=== PATIENT | male | born 1990 | race Caucasian/White ===

== ENCOUNTER 2017-08-13 08:31 | Emergency (ER) | payer BC ==
--- NOTE | 2017-08-13 09:06 | Emergency Department Record ---
History of Present Illness - General Chief Complaint: Abdominal Pain Stated Complaint: ABD PAIN Time Seen by Provider: 08/13/17 08:43 Source: Patient Mode of Arrival: Ambulatory Limitations: No limitations - History of Present Illness Initial Comments: The patient is here due to a 5 day hx of sharp crampy lower abdominal pain. The pain is intermittent and started in the RLQ and now is mainly in the LLQ. He did have 3 loose stools yesterday but none today. The patient has had some nausea but no vomiting, or fever. He did see his PCP 6 days ago and was told he may have a kidney stone but his urine was normal that day. Today he was seen in the [facility] and sent to the ER for further evaluation. He has no hx of any medical problems and no hx of any abdominal surgeries. MD Complaint: Abdominal pain Onset/Timin -: Days(s) Location: LLQ, RLQ Radiation: None Migration to: No migration Severity: Mild Quality: Sharp Consistency: Intermittent Improves With: Nothing Worsens With: Nothing Associated Symptoms: Nausea - Related Data Previous Rx's Medication Instructions Recorded Dicyclomine HCl [Bentyl] 10 mg PO Q8H #15 cap 08/13/17 Allergies Allergy/AdvReac Type Severity Reaction Status Date / Time amoxicillin Allergy Unknown Unverified 08/13/17 08:07 Travel Screening - Travel/Exposure Within Last 30 Days Have you traveled within the last 30 days?: No Review of Systems Constitutional: Denies: Chills, Fever Eyes: Denies: Eye discharge ENT: Denies: Congestion Respiratory: Denies: Cough, Dyspnea Past Medical History - SOCIAL HISTORY Smoking Status: Never smoker Alcohol Use: None Drug Use: None - RESPIRATORY Hx Respiratory Disorders: No - CARDIOVASCULAR Hx Cardio Disorders: No - NEURO Hx Neuro Disorders: No - GI Hx GI Disorders: No - Hx Genitourinary Disorders: No - ENDOCRINE Hx Endocrine Disorders: No - MUSCULOSKELETAL Hx Musculoskeletal Disorders: No - PSYCH Hx Psych Problems: No - HEMATOLOGY/ONCOLOGY Hx Hematology/Oncology Disorders: No Family Medical History Any Significant Family History?: No Physical Exam - General General Appearance: Alert, Oriented x3, Cooperative, No acute distress - Head Head exam: Atraumatic, Normocephalic, Normal inspection - Eye Eye exam: Normal appearance, PERRL - Neck Neck exam: Normal inspection, Full ROM. negative: Tenderness - Respiratory Respiratory exam: Normal lung sounds bilaterally. negative: Respiratory distress - Cardiovascular Cardiovascular Exam: Regular rate, Normal rhythm, Normal heart sounds - GI/Abdominal GI/Abdominal exam: Soft, Normal bowel sounds, Tenderness (There is mild tenderness in the lower abdomen L > R. The abdomen is soft with no guarding or rebound.). negative: Guarding, Hernia, Organomegaly, Pulsatile mass, Rebound, Rigid - exam: Circumcision, Normal inspection. negative: Scrotal swelling, Testicular tenderness, Vertical testicular lie Course Vital Signs 08/13/17 08:31 Temperature 97.8 F Pulse Rate 54 L Respiratory 18 Rate Blood Pressure 119/69 Pulse Ox 97 - Reevaluation(s) Reevaluation #1: The patient is resting comfortably and denies any significant pain at this time. I did explain to him the test results are all WNL's and he is to use Advil or Motrin for pain with Bentyl if needed. If not better in 3-5 days he is to recheck with his PCP and possibly obtain a referral to a specialist. 08/13/17 09:59 Medical Decision Making - Data Complexity MDM Data: Labs Ordered and/or Reviewed, X-Ray Ordered and/or Reviewed - Lab Data Result diagrams: 08/13/17 08:50 08/13/17 08:50 - Radiology Data Radiology results: Report reviewed (abd/pelvis CT: No acute changes.) Disposition Disposition: Discharge Clinical Impression: Abdominal pain Qualifiers: Abdominal location: unspecified location Qualified Code(s): R10.9 - Unspecified abdominal pain Disposition: Home, Self-Care Condition: (1) Good Instructions: Abdominal Pain (ED) Additional Instructions: Please take Advil or Motrin for pain and use the Bentyl if needed. Please see your PCP in 3-5 days if not better. Return to the ER for any increased pain, fever, or vomiting. Prescriptions: Dicyclomine HCl [Bentyl] 10 mg PO Q8H #15 cap Forms: Patient Portal Access Time of Disposition: 10:01 Quality - Quality Measures Quality Measures: N/A - Blood Pressure Screening View Details: Yes Does Patient Have Any of the Following: No Blood Pressure Classification: Normal BP Reading Systolic Measurement: 118 Diastolic Measurement: 68 Screening for High Blood Pressure: < Normal BP, F/U Not Required > [G8783]
[2017-08-13 09:07] LABS: BASO % 0.5 % (0-6); EOS % 2.8 % (0-6); GRAN % 65.3 % (47-80); HEMATOCRIT 44.3 % (42.0-52.0); HEMOGLOBIN 14.8 gm/dl (14.0-18.0); LYMPH % 25.5 % (16-45); MEAN CELL VOLUME 89.9 fl (81-97); MEAN CORPUSCULAR HGB CONC 33.4 g/dl (32-36); MEAN PLATELET VOLUME 10.8 fl (7.4-10.4); MONO % 5.9 % (0-9); PLATELET COUNT 270 K/uL (130-400); RED BLOOD COUNT 4.93 M/uL (4.40-5.70); RED CELL DISTRIBUTION WIDTH 12.8 % (11.5-14.5); WHITE BLOOD COUNT W/O DIFF 8.2 K/uL (4.2-12.2)
[2017-08-13 09:14] LABS: URINE APPEARANCE CLEAR; URINE BILIRUBIN NEGATIVE (NEGATIVE); URINE BLOOD NEGATIVE (NEGATIVE); URINE COLOR YELLOW; URINE GLUCOSE (UA) NEGATIVE (NEGATIVE); URINE KETONE NEGATIVE (NEGATIVE); URINE LEUKOCYTE ESTERASE NEGATIVE (NEGATIVE); URINE NITRITE NEGATIVE (NEGATIVE); URINE PROTEIN NEGATIVE (NEGATIVE); URINE UROBILINOGEN 0.2 E.U./dL (0.20 - 1.00)
[2017-08-13 09:44] LABS: ALKALINE PHOSPHATASE 43 U/L (40-129); ALT/SGPT 15 U/L (<41); AST/SGOT 17 U/L (10.0-50.0); BILIRUBIN,DIRECT 0.2 mg/dL (0-0.3); BLOOD UREA NITROGEN 18 mg/dL (6-20); CREATININE 0.9 mg/dL (0.7-1.2); EST GLOMERULAR FILTRATION RATE > 60 mL/min; GLUCOSE,RANDOM 83 mg/dL (74-109); LIPASE 35 U/L (13-60); TOTAL PROTEIN 7.8 g/dL (6.6-8.7)
--- NOTE | 2017-08-15 08:05 | CT SCAN REPORT ---
EXAM: EMERGENCY CT OF THE ABDOMEN AND PELVIS WITHOUT CONTRAST HISTORY: LOWER ABDOMINAL PAIN ON LEFT SIDE, ALSO ON RIGHT. TECHNIQUE: Axial CT scan of the abdomen and pelvis was performed without oral or IV contrast. Comparison: CT of the abdomen and pelvis 01/18/09. FINDINGS: There are bilateral small intrarenal calcifications consistent with bilateral currently nonobstructing intrarenal calculi. No definite hydronephrosis or hydroureter is seen on either side. As such it is very difficult to follow the entire course of both ureters in their nondilated state throughout the retroperitoneum and pelvis. There are no suspicious calcifications seen on the left, however, to suggest a left sided ureteral calculus. There are two right sided pelvic calcifications, neither of which was clearly seen back on 01/18/09. The more inferior of the two appears to be too low to be typical of a ureteral calculus and the other is probably too far posterolateral although its exact relationship to the right ureter is difficult to establish as the right ureter is difficult to confidently visualize. With no hydronephrosis or hydroureter this would seem unlikely to be a right ureteral calculus, but if this remains of strong clinical suspicion, follow-up CT urography would be suggested. No calcified gallstones are seen within the gallbladder. Evaluation of the bowel and viscera are very limited without oral or IV contrast. Given this limitation, no definite hepatic, splenic, adrenal, pancreatic, or renal mass identified. I believe the appendix is identified as a normal caliber structure with no appendicitis identified. The lung bases appear clear. No free intraperitoneal air or free intraperitoneal fluid evident. There is bilateral spondylolysis of L5. No appreciable spondylolisthesis of L5 on S1. There are some Schmorl's node type defects along the superior end plates of several of the lumbar vertebral bodies. IMPRESSION: 1. SMALL BILATERAL CURRENTLY NONOBSTRUCTING INTRARENAL CALCULI. NO HYDRONEPHROSIS OR HYDROURETER IS SEEN. 2. A COUPLE RIGHT SIDED PELVIC CALCIFICATIONS ARE PROBABLY PHLEBOLITHS DESCRIBED ABOVE. 3. THE APPENDIX IS SEEN AND APPEARS NEGATIVE WITH NO APPENDICITIS EVIDENT. 4. BILATERAL SPONDYLOLYSIS OF L5, BUT NO SPONDYLOLISTHESIS OF L5 ON S1. JOB NUMBER: [id number] [facility]
== END 2017-08-13 10:10 | disposition home or self-care (01) ==
LOC: ER 08:31
DX: R10.32 Left lower quadrant pain (principal); R11.0 Nausea
CPT/HCPCS: 74176; 80048; 80076; 81003; 83690; 85025; 99283; 99284

== ENCOUNTER 2019-10-09 12:04 | Emergency (ER) | payer SELFPAY ==
[2019-10-09] MEDS ORDERED: KETOROLAC 30 MG/ML VIAL IVP ONE (12:36)
[2019-10-09] MEDS ORDERED: ONDANSETRON HCL IV 4 MG/2 ML VIAL IV ONE (12:36)
[2019-10-09] MEDS ORDERED: 0.9 % SODIUM CHLORIDE 1,000 ML BAG IV ONE (12:36)
[2019-10-09 12:57] LABS: ABSOLUTE NEUTROPHIL COUNT 11.53; HEMATOCRIT 46.6 % (42.0-52.0); HEMOGLOBIN 15.2 gm/dl (14.0-18.0); MEAN CORPUSCULAR HEMOGLOBIN 29.7 pg (27-33); MEAN CORPUSCULAR HGB CONC 32.6 g/dl (32-36); MEAN PLATELET VOLUME 10.7 fl (7.4-10.4); PLATELET COUNT 261 K/uL (130-400); RED BLOOD COUNT 5.12 M/uL (4.40-5.70); RED CELL DISTRIBUTION WIDTH 13.5 % (11.5-14.5); URINE APPEARANCE CLEAR; URINE BILIRUBIN NEGATIVE (NEGATIVE); URINE BLOOD NEGATIVE (NEGATIVE); URINE COLOR YELLOW; URINE GLUCOSE (UA) NEGATIVE (NEGATIVE); URINE KETONE NEGATIVE (NEGATIVE); URINE LEUKOCYTE ESTERASE NEGATIVE (NEGATIVE); URINE NITRITE NEGATIVE (NEGATIVE); URINE PROTEIN NEGATIVE (NEGATIVE); URINE UROBILINOGEN 0.2 E.U./dL (0.20 - 1.00); WHITE BLOOD COUNT W/O DIFF 13.4 K/uL (4.2-12.2)
[2019-10-09 13:07] LABS: PLATELET ESTIMATE NORMAL (NORMAL)
[2019-10-09 13:11] LABS: BLOOD UREA NITROGEN 13 mg/dL (6-20)
[2019-10-09 13:12] LABS: CREATININE 0.8 mg/dL (0.7-1.2); EST GLOMERULAR FILTRATION RATE > 60 mL/min; LIPASE 16 U/L (13-60); TOTAL PROTEIN 7.6 g/dL (6.6-8.7)
[2019-10-09 13:14] LABS: GLUCOSE,RANDOM 95 mg/dL (74-109)
[2019-10-09 13:17] LABS: ALBUMIN 5.2 g/dL (4.0-5.0); ALKALINE PHOSPHATASE 50 U/L (40-129); ALT/SGPT 15 U/L (<41); AST/SGOT 16 U/L (10.0-50.0); BILIRUBIN,DIRECT < 0.2 mg/dL (0-0.3)
--- NOTE | 2019-10-09 13:38 | CT SCAN REPORT ---
EXAMINATION: CT Abdomen and Pelvis without IV Contrast EXAM DATE: 10/09/2019 1:17 PM TECHNIQUE: Standard protocol CT imaging of the abdomen and pelvis was performed without intravenous c ontrast. INDICATION: rlq pain COMPARISON: 08/13/2017 ENCOUNTER: Not applicable CT ABDOMEN AND PELVIS FINDINGS: Lung Bases: Included extent of the lung bases are clear. Hepatobiliary: The liver has a normal size with a smooth surface. Normal gallbladder Pancreas: The pancreas is normal. Spleen: The spleen is not enlarged. Adrenals: The adrenal glands are normal. Kidneys, Ureters, & Bladder: Multiple punctate nonobstructing bilateral renal calculi. Both ureters h ave a normal course and caliber and the urinary bladder a normal morphology and uniform wall thicknes s. No ureteral or bladder calculi are identified. Gastrointestinal: The stomach and small bowel are normal with no obstruction or inflammation. 10 mm r etrocecal appendix with surrounding inflammation consistent with acute appendicitis The large bowel i s within normal limits. Reproductive Organs: Unremarkable Lymphatic System: There is no adenopathy within the abdomen or pelvis. Vasculature: Normal caliber abdominal aorta Peritoneum: No free fluid, free air, or inflammation Abdominal wall & Musculoskeletal: No suspicious bone lesions. Assessment of the solid organs, soft tissues, and vascular structures is overall limited on noncontra st imaging, IMPRESSION: 1. Acute retrocecal appendicitis 2. Multiple punctate bilateral nonobstructing renal calculi Dictated by: Eren Hyatt MD on 10/09/2019 1:31 PM. .
--- NOTE | 2019-10-09 14:26 | Emergency Department Record ---
History of Present Illness - General Chief Complaint: Abdominal Pain Stated Complaint: RIGHT SIDE ABD PAIN Time Seen by Provider: 10/09/19 12:33 Source: Patient Mode of Arrival: Ambulatory Limitations: No limitations - History of Present Illness Initial Comments: pt has had rlq ap since this am that gets worse when he walks. hes had nausea MD Complaint: Abdominal pain Onset/Timin -: Hour(s) Location: RLQ Radiation: Back Severity: Moderate Severity scale (1-10): 5 Quality: Sharp Consistency: Constant Improves With: Other Worsens With: Nothing Associated Symptoms: Denies other symptoms - Related Data Home Medications Medication Instructions Recorded Confirmed Last Taken No Home Med [NO HOME MEDS] 10/09/19 10/09/19 Unknown Allergies Allergy/AdvReac Type Severity Reaction Status Date / Time amoxicillin Allergy Unknown PT UNSURE Unverified 10/09/19 12:21 OF REACTION Travel Screening - Travel/Exposure Within Last 30 Days Have you traveled within the last 30 days?: No - Travel/Exposure Within Last Year Have you traveled outside the [place] in the last year?: No - Additonal Travel Details Have you been exposed to anyone with a communicable illness?: No - Travel Symptoms Symptom Screening: None Review of Systems Gastrointestinal: Reports: Abdominal pain Past Medical History - SOCIAL HISTORY Smoking Status: Never smoker Alcohol Use: Occasional Drug Use: None - RESPIRATORY Hx Respiratory Disorders: No - CARDIOVASCULAR Hx Cardio Disorders: No - NEURO Hx Neuro Disorders: No - GI Hx GI Disorders: No - Hx Genitourinary Disorders: No - ENDOCRINE Hx Endocrine Disorders: No - MUSCULOSKELETAL Hx Musculoskeletal Disorders: No - PSYCH Hx Psych Problems: No - HEMATOLOGY/ONCOLOGY Hx Hematology/Oncology Disorders: No Family Medical History Any Significant Family History?: Yes Hx Cancer: Grandparents Hx Heart Disease: Father Physical Exam - General General Appearance: Alert, Oriented x3, Cooperative, Mild distress - Head Head exam: Normal inspection - Eye Eye exam: Normal appearance, PERRL, EOMI Pupils: Normal accommodation - ENT ENT exam: Normal exam, Mucous membranes moist, Normal external ear exam, Normal orophraynx Ear exam: Normal external inspection. negative: External canal tenderness Nasal Exam: Normal inspection. negative: Discharge, Sinus tenderness Mouth exam: Normal external inspection, Tongue normal Teeth exam: Normal inspection. negative: Dental caries Throat exam: Normal inspection. negative: Tonsillar erythema, Tonsillar exudate - Neck Neck exam: Normal inspection, Full ROM. negative: Tenderness - Respiratory Respiratory exam: Normal lung sounds bilaterally. negative: Respiratory distress - Cardiovascular Cardiovascular Exam: Regular rate, Normal rhythm, Normal heart sounds - GI/Abdominal GI/Abdominal exam: Soft, Normal bowel sounds, Tenderness - Rectal Rectal exam: Deferred - exam: Deferred - Extremities Extremities exam: Normal inspection, Full ROM, Normal capillary refill. negative: Tenderness - Back Back exam: Reports: Normal inspection, Full ROM. Denies: Muscle spasm, Rash noted, Tenderness - Neurological Neurological exam: Alert, CN II-XII intact, Normal gait, Oriented X3 - Psychiatric Psychiatric exam: Normal affect, Normal mood - Skin Skin exam: Dry, Intact, Normal color, Warm Course Vital Signs 10/09/19 12:23 Temperature 98.3 F Pulse Rate 63 Respiratory 20 Rate Blood Pressure 138/75 Pulse Ox 99 Medical Decision Making - Lab Data Result diagrams: 10/09/19 12:20 10/09/19 12:20 Lab Results 10/09/19 10/09/19 10/09/19 Range/Units 12:20 12:20 12:20 WBC 13.4 H (4.2-12.2) K/uL RBC 5.12 (4.40-5.70) M/uL Hgb 15.2 (14.0-18.0) gm/dl Hct 46.6 (42.0-52.0) % MCV 91.0 (81-97) fl MCH 29.7 (27-33) pg MCHC 32.6 (32-36) g/dl RDW 13.5 (11.5-14.5) % Plt Count 261 (130-400) K/uL MPV 10.7 H (7.4-10.4) fl Neutrophils % 87.0 H (47-80) % Eosinophils % Not Reportable Basophils % Not Reportable Absolute Neutrophils 11.53 Lymphocytes 9.0 L (16-45) % Monocytes 3.0 (0-9) % Platelet Estimate Normal (NORMAL) RBC Morphology Normal Eosinophil Count 1.0 (0-6) % Sodium 141 (136-145) mmol/L Potassium 4.6 H (3.4-4.5) mmol/L Chloride 102 (98-107) mmol/L Carbon Dioxide 26.0 (22-29) mmol/L Anion Gap 13.0 (7-16) BUN 13 (6-20) mg/dL Creatinine 0.8 (0.7-1.2) mg/dL Estimated GFR > 60 mL/min Random Glucose 95 (74-109) mg/dL Calcium 9.5 (8.6-10.0) mg/dL Total Bilirubin 0.80 (0.2-1.0) mg/dL Direct Bilirubin < 0.2 (0-0.3) mg/dL AST 16 (10.0-50.0) U/L ALT 15 (<41) U/L Alkaline Phosphatase 50 (40-129) U/L Total Protein 7.6 (6.6-8.7) g/dL Albumin 5.2 H (4.0-5.0) g/dL Lipase 16 (13-60) U/L Urine Color Yellow Urine Appearance Clear Urine pH 7.0 (5.0-8.0) Ur Specific [place] 1.020 (1.002-1.030) Urine Protein Negative (NEGATIVE) Urine Glucose (UA) Negative (NEGATIVE) Urine Ketones Negative (NEGATIVE) Urine Blood Negative (NEGATIVE) Urine Nitrite Negative (NEGATIVE) Urine Bilirubin Negative (NEGATIVE) Urine Urobilinogen 0.2 (0.20 - 1.00) E.U./dL Ur Leukocyte Esterase Negative (NEGATIVE) Disposition Disposition: Transfer Clinical Impression: Appendicitis Qualifiers: Appendicitis type: acute appendicitis Acute appendicitis type: with localized peritonitis Appendicitis gangrene presence: without gangrene Appendicitis perforation presence: without perforation Appendicitis abscess presence: without abscess Qualified Code(s): K35.30 - Acute appendicitis with localized peritonitis, without perforation or gangrene Disposition: Acute Care Hospital Transfer Transfer To: [facility] Reason For Transfer: acute appendicitis Accepting Physician: yevgeniy reich and estuardo Time Discussed w/Accepting Physician: 14:26 Quality - Quality Measures Quality Measures: N/A - Blood Pressure Screening Does Patient Have Any of the Following: No Blood Pressure Classification: Pre-Hypertensive BP Reading Systolic Measurement: 138 Diastolic Measurement: 75 Screening for High Blood Pressure: < Pre-Hypertensive BP, F/U Documented > [G8950] Pre-Hypertensive Follow-up Interventions: Follow-up with rescreen every year.
== END 2019-10-09 14:45 | disposition short-term general hospital (02) ==
LOC: ER 12:04
DX: K35.30 Acute appendicitis with localized peritonitis, without perforation or gangrene (principal); R11.0 Nausea
CPT/HCPCS: 74176; 80048; 80076; 81003; 83690; 85027; 99285; J7030